=== PATIENT | female | born 1945 | race Caucasian/White ===

== ENCOUNTER → 2023-07-19 10:32 | Outpatient (REF) | payer MEDICARE, OTHER, SELFPAY | LOC: RAD 10:32 | PROVIDERS: ATTENDING PHYSICIAN Internal Medicine Rheumatology; FAMILY PHYSICIAN Family Medicine | DX: M32.10 Systemic lupus erythematosus, organ or system involvement unspecified (principal); M81.0 Age-related osteoporosis without current pathological fracture | CPT/HCPCS: 77080 ==

== ENCOUNTER → 2023-07-27 07:12 | Outpatient (REF) | payer MEDICARE, OTHER, SELFPAY | LOC: RCS 07:12 | PROVIDERS: ATTENDING PHYSICIAN Nurse Practitioner; FAMILY PHYSICIAN Family Medicine; REFERRING PHYSICIAN Internal Medicine Rheumatology | DX: R06.02 Shortness of breath (principal); R53.83 Other fatigue; I35.1 Nonrheumatic aortic (valve) insufficiency | CPT/HCPCS: 93306 ==

== ENCOUNTER → 2023-08-01 07:22 | Outpatient (REF) | payer MEDICARE, OTHER, SELFPAY | LOC: DHCBC/DCA 07:22 | PROVIDERS: ATTENDING PHYSICIAN Nurse Practitioner; FAMILY PHYSICIAN Family Medicine | DX: R06.02 Shortness of breath (principal); R53.83 Other fatigue | CPT/HCPCS: 78452; 93017; A9500; J2785 ==

== ENCOUNTER → 2023-10-01 09:48 | Outpatient (REF) | payer MEDICARE, OTHER, SELFPAY | LOC: RAD 09:48 | PROVIDERS: ATTENDING PHYSICIAN Nurse Practitioner; FAMILY PHYSICIAN Family Medicine; REFERRING PHYSICIAN Internal Medicine Rheumatology | DX: I71.40 Abdominal aortic aneurysm, without rupture, unspecified (principal) | CPT/HCPCS: 71250 ==

== ENCOUNTER → 2023-12-17 14:18 | Outpatient (REF) | payer MEDICARE, OTHER, SELFPAY | LOC: RAD 14:18 | PROVIDERS: ATTENDING PHYSICIAN Internal Medicine Interventional Cardiology; FAMILY PHYSICIAN Family Medicine; REFERRING PHYSICIAN Internal Medicine Rheumatology | DX: R29.898 Other symptoms and signs involving the musculoskeletal system (principal) | CPT/HCPCS: 93922; 93925 ==

== ENCOUNTER 2024-06-09 06:25 | Day surgery (SDC) | payer MEDICARE, OTHER, SELFPAY | END 2024-06-09 13:38 | disposition home or self-care (01) | LOC: GI 06:25 | PROVIDERS: ATTENDING PHYSICIAN Internal Medicine | DX: D50.9 Iron deficiency anemia, unspecified (principal); K64.9 Unspecified hemorrhoids; K63.89 Other specified diseases of intestine; K62.89 Other specified diseases of anus and rectum; R13.10 Dysphagia, unspecified; K44.9 Diaphragmatic hernia without obstruction or gangrene; Q39.9 Congenital malformation of esophagus, unspecified; K31.89 Other diseases of stomach and duodenum; D12.3 Benign neoplasm of transverse colon | CPT/HCPCS: 45385; 45380; 43239; 88305; 88341; 88342 ==

== ENCOUNTER → 2024-09-04 12:21 | Outpatient (REF) | payer MEDICARE, OTHER, SELFPAY | LOC: WDC 12:21 | PROVIDERS: ATTENDING PHYSICIAN Family Medicine | DX: Z12.31 Encounter for screening mammogram for malignant neoplasm of breast (principal) | CPT/HCPCS: 77063; 77067 ==